=== PATIENT | female | born 1945 | race Caucasian/White ===

== ENCOUNTER → 2016-12-01 | Outpatient (CLI) | payer OTHER ==
[~2016-12-01] MED LIST: ACETAMINOPHEN650 M3 PO; ANTI-DIARRHEAL2 M1 PO; ANTIVERT; AUGMENTIN875 MG PO; CLEOCIN PO; EXCEDRIN MIGRA1 EACH PO; FLEXERIL PO; LORTAB 5/500 TA1 TA1 PO; MEDROL PO; MUCINEX D ER T1 EACH PO; NO MEDICATIONS; PATIENT'S PHARMACY; ZITHROMAX500 MG PO; ZYRTEC10 M2 PO
--- NOTE | ~2016-12-01 | MY29 ---
[facility] A Service of [facility] RADIOLOGY TEXT RESULTS PATIENT: BELKIS QUINN LOCATION: [facility] : 43 UNIT #: [id number] AGE: [address]: KEVYN HOLT MD SEX: F ORDER DR: [id number] [facility] [address]. [place], [place] [address] [id number] O MR#: [id number] Acc #: [id number] NAME: BELKIS QUINN : 1945 SEX: F STUDY DATE/TIME: 12/01/2016 11:06 UNIT: [facility] ROOM: STUDY DESCRIPTION: MY JUANITA SCREENING W/ CAD BILAT Attending Physician: Kevyn Holt M.D. Ordering Physician: Physician Non-Staff Primary Care Physician: Kevyn Holt M.D. MEDICAL IMAGING REPORT This report is preliminary unless electronic signature is present EXAM Digital screening mammogram, 12/01/2016 HISTORY 71-year-old woman no risk elevation. New baseline mammogram. COMPARISON None available. FINDINGS Digital imaging of each breast was completed utilizing a two-view examination of each breast in craniocaudal and mediolateral-oblique projections. Review and interpretation of digital mammograms include a second review in conjunction with FDA-approved CAD device. There is a normal parenchymal presentation bilaterally consistent with the patient's age. There are no breast masses imaged and no parenchymal asymmetry is visualized. There are no suspicious microcalcifications and I see no focal architectural disturbance. IMPRESSION Negative screening digital mammogram. One-year followup recommended. Patients over the age of 40 are entered into a reminder system with target due date for the next mammogram. A result letter will also be sent to the patient. BIRADS: 1 Negative Dictated by... Alex Mo M.D. THIS IS AN ELECTRONICALLY VERIFIED REPORT Alex Mo M.D. at 12/01/2016 3:26 PM [facility] A Service [facility] RADIOLOGY TEXT RESULTS PATIENT: BELKIS QUINN LOCATION: [facility] : 43 UNIT #: [id number] AGE: [address]: KEVYN HOLT MD SEX: F ORDER DR: REMIGIO/katerine TD: 12/01/2016 14:03 JOB #: [id number] MEDICAL IMAGING REPORT Page 1 of 1 COPY
== END | disposition home or self-care (01) ==
LOC: CWCC 10:30
DX: Z12.31 Encounter for screening mammogram for malignant neoplasm of breast (principal)
CPT/HCPCS: G0202

== ENCOUNTER 2016-12-19 21:06 | Inpatient (IN) | payer OTHER ==
[~2016-12-19] VITALS: Ht 160 cm; Wt 72.6 kg
--- NOTE | ~2016-12-19 | HP ---
Unit #: [id number] #: [id number] Patient: BELKIS QUINN [id number] [address] [place], [place] [address] [id number] I MR#: [id number] NAME: BELKIS QUINN ROOM: 217 Age: 71 Sex: F Admission Date: 12/20/2016 : 1945 Attending Physician: Cooper Handley M.D. Primary Care Physician: Kevyn Holt M.D. HISTORY AND PHYSICAL CHIEF COMPLAINT Infectious colitis. REASON FOR ADMISSION HISTORY OF PRESENT ILLNESS This pleasant 71-year-old female is admitted for infectious colitis. The patient states she was well until three days ago, when she developed lower mid abdominal pain. She then developed fever of 107 degrees with headache, nausea, nonbloody diarrhea, weakness and malaise. She presented to this emergency department last evening with temperature of 101.6, tachycardic. She was treated with Tylenol, bloused with IV fluids, given some Rocephin, Zofran and Flagyl. She denies recent ill contacts, antibiotics or travel. She has eaten at a couple of restaurants and states that the food tasted unusual, but no one else ate the same meal. She has never had a previous colonoscopy. PAST MEDICAL HISTORY 1. Gallstones. 2. . 3. Epistaxis requiring nasal packing as a child. 4. Appendectomy. 5. Myringotomy tubes as a child. SOCIAL HISTORY The patient lives with her , she is a lifelong nonsmoker and does not drink alcohol. FAMILY HISTORY Positive for colon cancer and lung cancer. ALLERGIES Codeine. HOME MEDICATIONS Excedrin for headaches. REVIEW OF SYSTEMS Nausea, abdominal pain, diarrhea, fevers, weakness, malaise, headaches, gallstones and the above mentioned surgeries. All other systems were reviewed and otherwise negative. PHYSICAL EXAMINATION Unit #: [id number] #: [id number] Patient: BELKIS QUINN GENERAL: Pleasant, young-appearing 71-year-old female, currently in no acute distress. VITALS: Temperature 101.6, pulse 124, respiratory rate 16, blood pressure 160/87, O2 saturation 95% on room air. HEENT: Pupils equally round and reactive to light and accommodation. Extraocular muscles intact. Pharynx is benign. NECK: Supple without adenopathy or thyromegaly. CHEST: Clear. HEART: Normal S1 and S2, without S3, S4 or murmur. ABDOMEN: Bowel sounds are present. Generalized abdominal tenderness without rebound or guarding. No definite hepatosplenomegaly or masses. EXTREMITIES: Without cyanosis, clubbing or edema. Pedal pulses are present. NEUROLOGIC: The patient is awake, alert and oriented. Cranial nerves are intact. She has equal strength throughout. DIAGNOSTIC STUDIES IMAGING: CT scan shows mild to moderate diffuse colitis. Mild diverticular disease, large gallstones, small benign liver cysts. LABORATORY: Hematocrit 36.8, MCV 79, white blood cell count 17.2, normal platelet count, 4 bands noted. Cardiac enzymes are negative. SMA12, glucose 160, potassium 3.2, normal lipase and lactic acid. Urinalysis 1+ blood with 5-10 cells, no white cells. CARDIOVASCULAR: ASSESSMENT 1. Gastroenteritis with concerns for bacterial infectious colitis. 2. Hypokalemia. PLAN 1. Levaquin and Flagyl pending stool cultures. If cultures are negative, would discontinue antibiotics. 2. IV fluids and supportive treatment. 3. SCDs for DVT prophylaxis. 4. Replace potassium and check magnesium. Dictated by Felipa Kennedy M.D. AML/gz TD: 12/20/2016 07:15 JOB #: [id number] CC: Austin Dowell Unit #: [id number] #: [id number] Patient: BELKIS QUINN HISTORY AND PHYSICAL Page 1 of 1 X Felipa Kennedy MD X HISTORY AND PHYSICAL
--- NOTE | ~2016-12-19 | HP ---
Unit #: [id number] #: [id number] Patient: BELKIS QUINN [id number] [address] [address] [id number] I MR#: [id number] NAME: BELKIS QUINN ROOM: 217 Age: 71 Sex: F Admission Date: 12/20/2016 : 1945 Attending Physician: Cooper Handley M.D. Primary Care Physician: Kevyn Holt M.D. HISTORY AND PHYSICAL ADDENDUM The patient would benefit from a future colonoscopy given that she has never had a colonoscopy, and her MCV is 79. Dictated by Austin Iglesias/bebeto TD: 12/20/2016 07:20 JOB #: [id number] HISTORY AND PHYSICAL Page 1 of 1 X Felipa Kennedy MD X HISTORY AND PHYSICAL
--- NOTE | ~2016-12-19 | DS ---
Unit #: [id number] #: [id number] Patient: BELKIS QUINN [id number] [address] [address] [id number] I MR#: [id number] NAME: BELKIS QUINN ROOM: 217 Age: 71 Sex: F Admission Date: 12/20/2016 : 1945 Discharge Date: 12/21/2016 Attending Physician: Cooper Handley M.D. DISCHARGE SUMMARY PRIMARY DIAGNOSIS Sepsis. SECONDARY DIAGNOSES 1. Acute Campylobacter colitis. 2. Hypokalemia. 3. Anemia. 4. Lack of appropriate screening colonoscopy. HOSPITAL COURSE The patient was admitted with sepsis criteria and imaging suggestive of colitis. She was started on Levaquin and Flagyl IV here with fevers as high as 103.2. Her symptoms began improving, and her intermittent fever was decreasing significantly. Stool was negative for C. diff. It was positive for Campylobacter antigen. She will be placed on 3 days of Zithromax as an outpatient and follow up with her PCP. The patient is 71 years of age, has never had a screening colonoscopy and does have microcytic anemia, so a colonoscopy is indicated and would be strongly recommended within the next 2 months. This was discussed with the patient. DISCHARGE DISPOSITION To home. DISCHARGE STATUS Stable. DISCHARGE ACTIVITY Ad rhina. DISCHARGE DIET Unrestricted. DISCHARGE FOLLOW-UP With Becca in 1-3 weeks. DISCHARGE MEDICATIONS 1. Tylenol 650 mg p.o. q.4 hours p.r.n. elevated temperature or pain. 2. Excedrin Migraine Geltabs 1 tablet p.o. daily p.r.n. for headache. 3. Zithromax 500 mg p.o. daily for 3 days. 4. Patient may use the [id number] antidiarrheal medication of her choice as needed as directed on the bottle for diarrhea. Unit #: [id number] #: [id number] Patient: BELKIS QUINN Dictated by... Austin Espinosa/bebeto TD: 12/22/2016 12:03 JOB #: [id number] CC: Austin Dowell DISCHARGE SUMMARY Page 1 of 1 X Cooper Handley MD DISCHARGE SUMMARY
--- NOTE | ~2016-12-19 | CT2 ---
[facility] A Service of [facility] RADIOLOGY TEXT RESULTS PATIENT: BELKIS QUINN LOCATION: [facility] 217-01 : 43 UNIT #: [id number] AGE: [address]: Cooper Handley MD SEX: F ORDER DR: [id number] [facility] [address]. [place], [place] [address] [id number] I MR#: [id number] Acc #: [id number] NAME: BELKIS QUINN : 1945 SEX: F STUDY DATE/TIME: 12/20/2016 0:01 UNIT: C2A ROOM: 217 STUDY DESCRIPTION: CT Abd and Pelv W Cont Attending Physician: Cooper Handley M.D. Ordering Physician: Kameron Patten M.D. Primary Care Physician: Kevyn Holt M.D. MEDICAL IMAGING REPORT This report is preliminary unless electronic signature is present EXAM CT abdomen and pelvis with contrast, 12/20/2016. HISTORY 71-year-old female in the ED complaining of a 1-day history of generalized abdomen pain, diarrhea, nausea and fever. TECHNIQUE CT examination of the abdomen and pelvis was performed with IV contrast. GI contrast was not administered. This CT exam was performed with one or more of the following radiation dose reduction techniques: automatic exposure control, adjustment of mA and/or kV according to patient size, and iterative reconstruction. FINDINGS ABDOMEN FINDINGS: The exam shows evidence of moderate diffuse colitis with colon wall thickening and prominent mucosal enhancement from the cecum to the rectosigmoid. Minimal pericolonic inflammatory soft tissue stranding, greatest adjacent to the right hemicolon. Infectious colitis is likely. Correlate for any known history of inflammatory bowel disease. Mild sigmoid colonic diverticulosis. No evidence of bowel obstruction, drainable abscess or bowel perforation. Small bowel is normal in caliber and appearance. Large gallstone within the gallbladder. No bile duct dilatation. Scattered small benign cysts within the liver. Liver, pancreas, and spleen are otherwise negative. Tiny nonobstructing calculus lower pole left kidney and several tiny benign parapelvic left renal cysts. Kidneys otherwise negative with no evidence of urinary obstruction. Normal-caliber abdominal aorta. PELVIS FINDINGS: Uterus, ovaries, bladder and rectum are negative. No STS. [facility] A Service of [facility] RADIOLOGY TEXT RESULTS PATIENT: BELKIS QUINN LOCATION: [facility] 217-01 : 43 UNIT #: [id number] AGE: [address]: Cooper Handley MD SEX: F ORDER DR: inguinal hernia. Limited lung base images show no active disease. IMPRESSION 1. CT findings compatible with mild to moderate diffuse colitis from the cecum to the rectosigmoid. Infectious colitis should be excluded. No evidence of bowel obstruction, drainable abscess, or bowel perforation. 2. Mild diverticulosis. 3. Large gallstone within the gallbladder. Small benign liver cysts. 4. Tiny nonobstructing left renal calculus. Dictated by... Jermaine Venegas M.D. THIS IS AN ELECTRONICALLY VERIFIED REPORT Jermaine Venegas M.D. at 12/20/2016 8:56 PM KIMBERLEYW/pradip TD: 12/20/2016 09:15 JOB #: [id number] MEDICAL IMAGING REPORT Page 1 of 1 COPY
[~2016-12-19 21:06] MED LIST changes: -ACETAMINOPHEN650 M3 PO; -ANTI-DIARRHEAL2 M1 PO; -EXCEDRIN MIGRA1 EACH PO; -PATIENT'S PHARMACY; -ZITHROMAX500 MG PO
[2016-12-19 22:26] LABS: BASOPHIL# 0.1 X10e3 (0-0.3); BASOPHIL% 0.4 % (0-2.5); HEMATOCRIT 36.8 % (35.0-45.0); HEMOGLOBIN 12.4 gm/dL (12.0-16.0); LYMPHOCYTE# 0.8 X10e3 (1.0-3.5); LYMPHOCYTE% 4.6 % (17.0-45.0); MEAN CELL VOLUME 78.7 FL (83-96); MEAN CORPUSCULAR HEMOGLOBIN 26.6 PG (28-34); MEAN CORPUSCULAR HGB CONC 33.8 g/dL (30-36); MEAN PLATELET VOLUME 8.2 FL (6.5-11.5); MONOCYTE# 0.7 X10e3 (0-1.0); MONOCYTE% 3.8 % (3.0-12.0); NEUTROPHIL# 15.7 X10e3 (1.5-7.1); NEUTROPHIL% 91.2 % (40-75); PLATELET COUNT 191 X10e3 (140-420); RED BLOOD COUNT 4.68 X10e (3.90-5.30); WHITE BLOOD COUNT 17.2 X10e3 (4.0-10.5)
[2016-12-19 22:27] LABS: DIFF IND YES
[2016-12-19 22:34] LABS: POC - CKMB <1.0 ng/mL (0.0-7.9); POC - TROPONIN <0.05 ng/mL (<=0.05)
[2016-12-19 22:48] LABS: BILIRUBIN, DIRECT 0.1 mg/dL (0.0-0.2); BILIRUBIN,INDIRECT 0.7 mg/dL (0.0-0.9); BILIRUBIN,TOTAL 0.8 mg/dL (0.2-2.0); BUN/CREATININE RATIO 12.22; CALCIUM SERUM 8.7 mg/dL (8.4-10.2); CREATININE SERUM 0.9 mg/dL (0.6-1.4); GLOM FILT RATE Estimated 63.9 mL/min (>60); POTASSIUM 3.2 mmol/L (3.5-5.1); PROTEIN TOTAL SERUM 7.6 g/dL (6.0-8.3)
[2016-12-19 23:00] LABS: PLATELET ESTIMATE DECREASED (NORMAL)
[2016-12-19 23:01] LABS: MICROCYTOSIS SL; SMUDGE CELLS 7 /100
[2016-12-20 00:09] LABS: URINE SOURCE CLEAN CATCH
[2016-12-20 00:18] LABS: URINE APPEARANCE CLEAR; URINE BILIRUBIN NEG (NEG); URINE BLOOD 1+ (NEG); URINE COLOR YELLOW; URINE GLUCOSE NEG (NEG); URINE KETONE TRACE (NEG); URINE LEUKOCYTE ESTERASE NEG (NEG); URINE NITRATE NEG (NEG); URINE PH 5.5 (5-8); URINE PROTEIN NEG (NEG); URINE SPECIFIC GRAVITY 1.011 (1.003-1.035); URINE UROBILINOGEN 0.2 MG/DL (NEG)
[2016-12-20 00:21] LABS: URINE BACTERIA AUWI NEG (NEGATIVE); URINE SQUAMOUS EPITHELIAL CELL NONE SEEN /[HPF]; UWBCS1 AUWI 0-2 (0-5)
[2016-12-20 00:27] LABS: CULTURE INDICATED? NO
[2016-12-20 07:53] LABS: BASOPHIL% 0.2 % (0-2.5); HEMATOCRIT 34.8 % (35.0-45.0); HEMOGLOBIN 11.5 gm/dL (12.0-16.0); LYMPHOCYTE# 1.3 X10e3 (1.0-3.5); LYMPHOCYTE% 8.6 % (17.0-45.0); MEAN CELL VOLUME 79.9 FL (83-96); MEAN CORPUSCULAR HEMOGLOBIN 26.5 PG (28-34); MEAN CORPUSCULAR HGB CONC 33.1 g/dL (30-36); MEAN PLATELET VOLUME 8.5 FL (6.5-11.5); MONOCYTE# 0.5 X10e3 (0-1.0); MONOCYTE% 3.1 % (3.0-12.0); NEUTROPHIL# 13.2 X10e3 (1.5-7.1); NEUTROPHIL% 88.1 % (40-75); PLATELET COUNT 196 X10e3 (140-420); RED BLOOD COUNT 4.35 X10e (3.90-5.30); RED CELL DISTRIBUTION WIDTH 13.8 % (11.0-15.5)
[2016-12-20 07:58] LABS: BUN/CREATININE RATIO 12.85; CALCIUM SERUM 8.2 mg/dL (8.4-10.2); CREATININE SERUM 0.7 mg/dL (0.6-1.4); GLOM FILT RATE Estimated 86.6 mL/min (>60); MAGNESIUM 1.8 mg/dL (1.6-3.0); POTASSIUM 3.4 mmol/L (3.5-5.1)
[2016-12-20 07:59] LABS: DIFF IND NO
[2016-12-20] MEDS ORDERED: EXCEDRIN MIGRA1 EACH PO (10:46)
[2016-12-20] MEDS ORDERED: PATIENT'S PHARMACY (10:46)
[2016-12-21 06:21] LABS: HEMATOCRIT 33.2 % (35.0-45.0); HEMOGLOBIN 11.1 gm/dL (12.0-16.0); MEAN CELL VOLUME 80.7 FL (83-96); MEAN CORPUSCULAR HEMOGLOBIN 26.8 PG (28-34); MEAN CORPUSCULAR HGB CONC 33.3 g/dL (30-36); MEAN PLATELET VOLUME 8.2 FL (6.5-11.5); RED BLOOD COUNT 4.12 X10e (3.90-5.30); RED CELL DISTRIBUTION WIDTH 14.3 % (11.0-15.5); WHITE BLOOD COUNT 9.4 X10e3 (4.0-10.5)
[2016-12-21 07:04] LABS: BUN/CREATININE RATIO 8.57; CALCIUM SERUM 8.4 mg/dL (8.4-10.2); CREATININE SERUM 0.7 mg/dL (0.6-1.4); GLOM FILT RATE Estimated 86.6 mL/min (>60); MAGNESIUM 1.9 mg/dL (1.6-3.0); POTASSIUM 4.1 mmol/L (3.5-5.1)
[2016-12-21] MEDS ORDERED: ACETAMINOPHEN650 M3 PO (10:11)
[2016-12-21] MEDS ORDERED: ZITHROMAX500 MG PO (10:12)
[2016-12-21] MEDS ORDERED: ANTI-DIARRHEAL2 M1 PO (10:13)
== END 2016-12-21 10:26 | disposition home or self-care (01) | DRG 872 ==
LOC: CED 21:06 → CEDOF 12-20 02:19 → CED 12-20 02:19 → C2A 12-20 03:25 → CEDOF 12-20 03:25 → C2A 12-20 06:25 → CEDOF 12-20 23:50 → C2A 12-20 23:50
PROVIDERS: Emergency Medicine; Internal Medicine
DX: A41.9 Sepsis, unspecified organism (principal); A04.5 Campylobacter enteritis; D64.9 Anemia, unspecified; E87.6 Hypokalemia; Z90.49 Acquired absence of other specified parts of digestive tract; Z80.1 Family history of malignant neoplasm of trachea, bronchus and lung; Z80.0 Family history of malignant neoplasm of digestive organs
CPT/HCPCS: 36415; 74177; 80048; 80076; 81003; 82553; 83605; 83690; 83735; 84484; 85025; 85027; 87040; 87045; 87177; 87209; 87427; 87493; 87899; 96361; 96374; 99285; J0696; J1956; J2405; Q9967